=== PATIENT | female | born 1985 | race Caucasian/White ===

== ENCOUNTER 2017-08-18 19:26 | Emergency (ER) | payer MEDICAID ==
[2017-08-18 19:44] VITALS: BP 100/74
[2017-08-18] MEDS ORDERED: Ketorolac INJ* 60 MG/2 ML VIAL IM ONE (20:54)
--- NOTE | 2017-08-18 21:20 | UC ---
Upper Extremity HPI - HPI Summary HPI Summary: patient states she sleep walks and awake in away that put a lot of stress on her left arm--has carpal tunnel pain and lateral epicondyle pain - History of Current Complaint Chief Complaint: UCUpperExtremity Stated Complaint: ARM PAIN AND HAND PAIN Time Seen by Provider: 08/18/17 20:45 Hx Obtained From: Patient Hx Last Menstrual Period: January 26- ?: No Onset/Duration: Sudden Onset, Lasting Days - 1 Severity Initially: Moderate Severity Currently: Moderate Pain Intensity: 7 Pain Scale Used: 0-10 Numeric Location Of Pain: Is Discrete @ - left arm Character: Aching, Throbbing, Stiffness, Burning Aggravating Factor(s): Movement Alleviating Factor(s): Nothing Associated Signs And Symptoms: Positive: Negative Related History: Dominant Hand Right - Allergies/Home Medications Allergies/Adverse Reactions: Allergies Allergy/AdvReac Type Severity Reaction Status Date / Time haloperidol [From Haldol] Allergy Leg Cramps Verified 08/18/17 19:45 Home Medications: Home Medications Acetaminophen [Non-Aspirin] 325 mg PO 08/18/17 [History] Buprenorphine HCl/Naloxone HCl [Suboxone 8 mg-2 mg Sl Film] 08/18/17 [History] QUEtiapine TAB* [Seroquel TAB*] 100 mg PO BEDTIME 08/18/17 [History Confirmed ] Quetiapine Fumarate [Quetiapine Fumarate ER] 50 mg PO 08/18/17 [History] Sertraline HCl [Zoloft] 100 mg PO 08/18/17 [History] diPHENhydraMINE PO* [Benadryl PO 50 MG CAP*] 08/18/17 [History] hydrOXYzine HCl [Hydroxyzine HCl] 50 mg PO 08/18/17 [History] risperiDONE [Risperidone] 0.5 mg PO 08/18/17 [History] PMH/Surg Hx/FS Hx/Imm Hx Previously Healthy: No Psychological History: Depression, Other Other Psychological History: Substance abuse disorder in remission - Surgical History Surgical History: None - Family History Known Family History: Positive: None - Social History Occupation: Unemployed Lives: [facility] Alcohol Use: None Substance Use Type: None Smoking Status (MU): Former Smoker Review of Systems Constitutional: Negative Skin: Negative Eyes: Negative ENT: Negative Respiratory: Negative Cardiovascular: Negative Gastrointestinal: Negative Genitourinary: Negative Motor: Negative Neurovascular: Negative Musculoskeletal: Arthralgia - left arm Neurological: Negative Psychological: Negative Is Patient Immunocompromised?: No All Other Systems Reviewed And Are Negative: Yes Physical Exam Triage Information Reviewed: Yes Appearance: Well-Appearing, No Pain Distress, Well-Nourished Vital Signs: Initial Vital Signs Temp 97.6 F 08/18/17 19:38 Pulse 77 08/18/17 19:38 Resp 18 08/18/17 19:38 BP 100/74 08/18/17 19:38 Pulse Ox 97 08/18/17 19:38 Vital Signs Reviewed: Yes Eye Exam: Normal Eyes: Positive: Conjunctiva Clear ENT Exam: Normal ENT: Positive: Normal ENT inspection, Hearing grossly normal. Negative: Nasal congestion, Tonsillar swelling, Tonsillar exudate, Trismus, Muffled voice, Hoarse voice, Dental tenderness Dental Exam: Normal Neck exam: Normal Neck: Positive: Supple, Nontender, No Lymphadenopathy Respiratory Exam: Normal Respiratory: Positive: Chest non-tender, Lungs clear, Normal breath sounds, No respiratory distress, No accessory muscle use Cardiovascular Exam: Normal Cardiovascular: Positive: RRR, No Murmur, Pulses Normal, Brisk Capillary Refill Musculoskeletal Exam: Normal Musculoskeletal: Positive: Strength Intact, ROM Intact, No Edema Neurological Exam: Normal Neurological: Positive: Alert, Muscle Tone Normal Psychological Exam: Normal Skin Exam: Normal Upper Extremity Course/Dx - Course Course Of Treatment: increase ibuprofen, medrol dose bianca, follow with pcp, toradol im tonight times one now - Differential Dx/Diagnosis Provider Diagnoses: paresthesia left arm Discharge - Discharge Plan Condition: Stable Disposition: HOME Prescriptions: Ibuprofen TAB* [Motrin TAB* 600 MG] 600 mg PO Q6H PRN #40 tab PRN Reason: pain methylPREDNISolone [Medrol] 4 mg PO .SEE BIANCA INSTRUCTION #1 pkt Patient Education Materials: Paresthesia (ED) Referrals: [facility] [place] [facility] REFERRAL [Outside] - If Needed
== END 2017-08-18 21:10 | disposition home or self-care (01) ==
LOC: UCEAST 19:26
DX: R20.2 Paresthesia of skin (principal); F32.9 Major depressive disorder, single episode, unspecified; Z87.891 Personal history of nicotine dependence
CPT/HCPCS: 96372; 99212; G0463; J1885

== ENCOUNTER 2017-09-16 14:39 | Emergency (ER) | payer SELFPAY ==
[2017-09-16] MEDS ORDERED: Acetaminophen TAB* 325 MG PO ONE (15:27)
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
[2017-09-16 17:16] VITALS: BP 109/69
== END 2017-09-16 17:13 | disposition home or self-care (01) ==
LOC: ED 14:39
DX: S13.9XXA Sprain of joints and ligaments of unspecified parts of neck, initial encounter (principal); T14.8XXA Other injury of unspecified body region, initial encounter; R51 Headache; Z87.891 Personal history of nicotine dependence; V43.62XA Car passenger injured in collision with other type car in traffic accident, initial encounter; Y92.410 Unspecified street and highway as the place of occurrence of the external cause
CPT/HCPCS: 70450; 72125; 99282; A9270-GY